=== PATIENT | female | born 1935 | race Caucasian/White ===

== ENCOUNTER 2017-01-10 12:58 | Emergency (ER) | payer OTHER, MEDICARE ==
--- NOTE | 2017-01-10 13:10 | EDPHY ---
H & P Time Seen by Provider: 01/10/17 13:10 HPI/ROS: CHIEF COMPLAINT: Fall with head injury HISTORY OF PRESENT ILLNESS: This 82-year-old wound does not usually walk that much but insisted on walking 6 blocks to [place] today. When she was trying to got 3 concrete steps to the chart she fell and hit her head on a support post. EMS was called, evaluated the patient, was brought by family. And patient presents with a headache. It is mostly right-sided and associated with nausea. Started after the fall. Radiates a little into her right neck. Not associated with visual changes or vertigo or ataxia. Symptoms mild to moderate. REVIEW OF SYSTEMS: Eye: no change in vision ENT: no sore throat Cardiac: No syncope. Describe some intermittent left-sided chest pain which is worse with movement since she got to the emergency department. Pulmonary: no cough or SOB Abdomen: no vomiting, diarrhea, abdominal pain Musculoskeletal: no back pain Skin: no rash Neuro: no headache Constitutional: no fever : no urinary symptoms A comprehensive 10 point review of systems is otherwise negative aside from elements mentioned in the history of present illness. PAST MEDICAL HISTORY: Includes coronary disease with cardiac stenting, on Plavix Social history: Here with and remainder of family General Appearance: Alert and conversant, cooperative. Eyes: No scleral icterus. ENT, Mouth: Normal mucous membranes. Right occipital scalp hematoma. Respiratory: Normal respiratory effort, breath sounds equal, lungs are clear to auscultation. Cardiovascular: Ir regular rate and rhythm. Gastrointestinal: Abdomen is soft and non tender. Neurological: Alert and oriented x3. Normally conversant. Face symmetric, normal movement and sensation in all extremities. Ambulatory without ataxia or assistance to the bathroom. Skin: Ecchymosis left forearm and abrasion to the left hand. Musculoskeletal: No cervical thoracic or lumbar spine tenderness. No extremity bony tenderness or deformity. Psychiatric: Not agitated. Emergency Department course/MDM: Initial vital signs notable for heart rate of 38. Initial heart rate on the monitor is in the 70s. Plan for noncontrast head CT scanning and an 82-year-old patient with head trauma, headache and nausea. Labs to include troponin and electrolytes with initial bradycardia, EKG and chest x-ray. Treat symptoms of headache and nausea with Zofran 4 mg IV and acetaminophen 650 mg orally. 1415: Negative head cervical spine CT per Preet at 2:10 p.m.. 1450: Results discussed, patient wants to go home. Although patient's initial pulse was documented at triage was 38, she never had a low heart rate here. Her pulse in the monitor was always been in the 60s and 70s. She did not have a history of syncope. Symptoms not completely gone but improved after Zofran and acetaminophen. Smoking Status: Never smoked Constitutional: Initial Vital Signs Temperature (C) 36.4 C 01/10/17 13:01 Heart Rate 38 L 01/10/17 13:01 Respiratory Rate 16 01/10/17 13:01 Blood Pressure 164/85 H 01/10/17 13:01 O2 Sat (%) 97 01/10/17 13:01 O2 Delivery Mode Room Air Allergies/Adverse Reactions: aspirin [Aspirin] Allergy (Intermediate, Verified 07/13/12 13:04) UPSET STOMACH cephalexin monohydrate [From Keflex] Allergy (Intermediate, Verified 07/13/12 13 :04) Hives cyclobenzaprine HCl [From Flexeril] Allergy (Intermediate, Verified 07/13/12 13: 04) NAUSEA/TENSION morphine [Morphine] Allergy (Intermediate, Verified 07/13/12 13:04) UPSET STOMACH Penicillins Allergy (Intermediate, Verified 07/13/12 13:04) Hives Sulfa (Sulfonamide Antibiotics) Allergy (Intermediate, Verified 07/13/12 13:04) Hives prochlorperazine edisylate [From Compazine] Allergy (Verified 07/13/12 13:04) DIFFICULTY BREATHING prochlorperazine maleate [From Compazine] Allergy (Verified 09/14/11 18:22) Home Medications: Medication Instructions Recorded Aspirin [Aspirin 81mg] 81 mg PO DAILY 09/29/11 Atorvastatin Calcium [Lipitor] 20 mg PO DAILY 09/29/11 Clopidogrel Bisulfate [Plavix] 75 mg PO DAILY 09/29/11 METOPROLOL TARTRATE 12.5 mg PO BID 09/29/11 Nitroglycerin [Nitrostat] 0.4 mg SL PRN 09/29/11 Pantoprazole Sodium [Protonix] 40 mg PO DAILY 09/29/11 Medical Decision Making - Diagnostics Imaging Results: Imaging Impressions Cervical Spine CT 01/10/17 13:22 Impression: Head CT within normal limits. 2. CT Cervical Spine Without Contrast, 13:36 History: Trauma. Fall. Neck pain. Technique: Multislice helical CT through the cervical spine without contrast from the skull base to T1. Soft tissue and bone evaluation is performed. Sagittal and coronal reconstructions are obtained and reviewed. Dose reduction techniques were utilized. Findings: Cervical alignment is anatomic. No fracture or dislocation is identified. The relationship between skull base and C1 is normal. The C1-C2 articulation is normally aligned. 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 The odontoid process is intact. There is moderate degenerative narrowing of disk spaces between C4 and C7. Facet joints are normally aligned, but associated with multilevel bilateral degenerative change. The cervical thoracic junction is normally aligned, but associated with a mild degenerative spondylolisthesis. Soft tissue window evaluation does not show evidence of epidural or prevertebral hematoma. There is moderate central disk bulging or protrusion at C2-C3, C3-C4 and diffusely with marginal bone spurring at C5-C6. Impression: No acute posttraumatic abnormality identified. Results called and discussed with AKOSUA CARTER at 01/10/2017 14:09 Final results are concordant with the initial interpretation. General information for patients regarding this examination can be found at [email or web address]. If you have questions or comments about this report, please contact me at (hospital) or [phone] (cell). Head CT 01/10/17 13:22 Impression: Head CT within normal limits. 2. CT Cervical Spine Without Contrast, 13:36 History: Trauma. Fall. Neck pain. Technique: Multislice helical CT through the cervical spine without contrast from the skull base to T1. Soft tissue and bone evaluation is performed. Sagittal and coronal reconstructions are obtained and reviewed. Dose reduction techniques were utilized. Findings: Cervical alignment is anatomic. No fracture or dislocation is identified. The relationship between skull base and C1 is normal. The C1-C2 articulation is normally aligned. 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 The odontoid process is intact. There is moderate degenerative narrowing of disk spaces between C4 and C7. Facet joints are normally aligned, but associated with multilevel bilateral degenerative change. The cervical thoracic junction is normally aligned, but associated with a mild degenerative spondylolisthesis. Soft tissue window evaluation does not show evidence of epidural or prevertebral hematoma. There is moderate central disk bulging or protrusion at C2-C3, C3-C4 and diffusely with marginal bone spurring at C5-C6. Impression: No acute posttraumatic abnormality identified. Results called and discussed with AKOSUA CARTER, at 01/10/2017 14:09 Final results are concordant with the initial interpretation. General information for patients regarding this examination can be found at [email or web address]. If you have questions or comments about this report, please contact me at [phone] (hospital) or [phone] (cell). Chest X-Ray 01/10/17 13:23 Impression: Nothing acute identified. Differential Diagnosis: Differential diagnosis considered for head injury including but not limited to concussion, skull fracture, intraparenchymal contusion, subarachnoid, subdural and epidural hematoma. - Data Points Laboratory Results: Laboratory Results 01/10/17 13:30 01/10/17 13:30 01/10/17 01/10/17 01/10/17 13:30 13:30 13:30 WBC 11.42 10^3/uL H 10^3/uL (3.80-9.50) RBC 4.00 10^6/uL L 10^6/uL (4.18-5.33) Hgb 10.0 g/dL L g/dL (12.6-16.3) Hct 33.3 % L % (38.0-47.0) MCV 83.3 fL fL (81.5-99.8) MCH 25.0 pg L pg (27.9-34.1) MCHC 30.0 g/dL L g/dL (32.4-36.7) RDW 15.7 % H % (11.5-15.2) Plt Count 318 10^3/uL 10^3/uL (150-400) MPV 9.1 fL fL (8.7-11.7) Neut % (Auto) 85.7 % H % (39.3-74.2) Lymph % (Auto) 8.4 % L % (15.0-45.0) [place] % (Auto) 4.7 % % (4.5-13.0) Eos % (Auto) 0.4 % L % (0.6-7.6) Baso % (Auto) 0.3 % % (0.3-1.7) Nucleat RBC Rel Count 0.0 % % (0.0-0.2) Absolute Neuts (auto) 9.78 10^3/uL H 10^3/uL (1.70-6.50) Absolute Lymphs (auto) 0.96 10^3/uL L 10^3/uL (1.00-3.00) Absolute Monos (auto) 0.54 10^3/uL 10^3/uL (0.30-0.80) Absolute Eos (auto) 0.05 10^3/uL 10^3/uL (0.03-0.40) Absolute Basos (auto) 0.03 10^3/uL 10^3/uL (0.02-0.10) Absolute Nucleated RBC 0.00 10^3/uL 10^3/uL (0-0.01) Immature Gran % 0.5 % % (0.0-1.1) Immature Gran # 0.06 10^3/uL 10^3/uL (0.00-0.10) PT 13.2 SEC SEC (12.0-15.0) INR 1.01 (0.83-1.16) APTT 31.3 SEC SEC (23.0-38.0) Sodium 138 mEq/L mEq/L (134-144) Potassium 4.0 mEq/L mEq/L (3.5-5.2) Chloride 102 mEq/L mEq/L (97-110) Carbon Dioxide 26 mEq/l mEq/l (22-31) Anion Gap 10 mEq/L mEq/L (8-16) BUN 23 mg/dL mg/dL (7-23) Creatinine 0.6 mg/dL mg/dL (0.6-1.0) Estimated GFR > 60 Glucose 105 mg/dL H mg/dL (70-100) Calcium 9.4 mg/dL mg/dL (8.5-10.4) Troponin I < 0.012 ng/mL ng/mL (0-0.034) Departure - Departure Disposition: Home, Routine, Self-Care Clinical Impression: Head injury Qualifiers: Encounter type: initial encounter Qualified Code(s): S09.90XA - Unspecified injury of head, initial encounter Condition: Good Instructions: Head Injury (ED) Referrals: aPnchito Sage MD [Primary Care Provider] - As per Instructions Pal Stout MD [Medical Doctor] - As per Instructions
[2017-01-10] MEDS ORDERED: ACETAMINOPHEN 325 MG TAB PO ONE (13:23)
[2017-01-10] MEDS ORDERED: ONDANSETRON 4 MG/2 ML VIAL IVP ONE (13:23)
[2017-01-10 13:36] LABS: % IMMATURE GRANULYOCYTES 0.5 % (0.0-1.1); ABSOLUTE IMMATURE GRANULOCYTES 0.06 10^3/uL (0.00-0.10); ADD DIFF? NO; ADD MORPH? NO; ADD SCAN? NO; ATYPICAL LYMPHOCYTE FLAG 10 (0-99); FRAGMENT RBC FLAG 0 (0-99); HEMATOCRIT 33.3 % (38.0-47.0); LEFT SHIFT FLG 0 (0-99); LIPEMIA HEMOLYSIS FLAG 80 (0-99); MEAN CELL VOLUME 83.3 fL (81.5-99.8); MEAN PLATELET VOLUME 9.1 fL (8.7-11.7); PLATELET CLUMPS FLAG 10 (0-99); PLATELET COUNT 318 10^3/uL (150-400); RED CELL DISTRIBUTION WIDTH 15.7 % (11.5-15.2)
[2017-01-10 13:49] LABS: INR 1.01 (0.83-1.16); PROTIME(PATIENT) 13.2 SEC (12.0-15.0)
[2017-01-10 13:50] LABS: APTT 31.3 SEC (23.0-38.0)
[2017-01-10 14:00] LABS: ANION GAP 10 mEq/L (8-16); CALCIUM 9.4 mg/dL (8.5-10.4); CARBON DIOXIDE 26 mEq/l (22-31); CHLORIDE 102 mEq/L (97-110); CREATININE 0.6 mg/dL (0.6-1.0); GLOMERULAR FILTRATION RATE > 60; GLUCOSE 105 mg/dL (70-100); SODIUM 138 mEq/L (134-144)
[2017-01-10 14:12] LABS: TROPONIN I < 0.012 ng/mL (0-0.034)
--- NOTE | 2017-01-10 14:29 | CPEKG ---
Heart Rate: 57 RR Interval: 1053 P-R Interval: 156 QRSD Interval: 90 QT Interval: 416 QTC Interval: 405 P [place]: 51 QRS [place]: -9 T Wave [place]: 45 EKG Severity - ABNORMAL ECG - EKG Impression: SINUS RHYTHM EKG Impression: VENTRICULAR BIGEMINY EKG Impression: PROBABLE LEFT ATRIAL ABNORMALITY Electronically Signed By: Alex Sharma 10-Jan-2017 15:03:20
[2017-01-10 14:44] VITALS: RESP 18
[2017-01-10 15:17] VITALS: BP 134/68; PULSE 65; TEMP 98.4; O2SAT 98
== END 2017-01-10 15:15 | disposition home or self-care (01) ==
DX: S09.90XA Unspecified injury of head, initial encounter (principal); I25.10 Atherosclerotic heart disease of native coronary artery without angina pectoris; Z79.82 Long term (current) use of aspirin; Z95.5 Presence of coronary angioplasty implant and graft; W01.198A Fall on same level from slipping, tripping and stumbling with subsequent striking against other object, initial encounter; Y92.22 Religious institution as the place of occurrence of the external cause; Y99.8 Other external cause status; Y93.01 Activity, walking, marching and hiking
CPT/HCPCS: 70450; 71020; 72125; 93005; 96374; 99285; J2405

== ENCOUNTER → 2017-03-29 | Outpatient (CLI) | payer OTHER, MEDICARE | LOC: FLAB 14:27 → EDSTATUS 14:31 → FIMAGING 14:32 | PROVIDERS: ATTEND Family Medicine | DX: M25.571 Pain in right ankle and joints of right foot (principal) | CPT/HCPCS: 82607-90 ==

== ENCOUNTER → 2017-04-22 | Outpatient (CLI) | payer OTHER, MEDICARE | LOC: BRMIMAGING 15:03 | PROVIDERS: ATTEND Internal Medicine Rheumatology | DX: M79.671 Pain in right foot (principal); M77.31 Calcaneal spur, right foot | CPT/HCPCS: 73630-PO ==

== ENCOUNTER → 2018-11-01 | Outpatient (CLI) | payer OTHER, MEDICARE | LOC: FIMAGING 14:18 | PROVIDERS: ATTEND Registered Nurse | DX: M51.36 Other intervertebral disc degeneration, lumbar region (principal); R29.90 Unspecified symptoms and signs involving the nervous system ==